=== PATIENT | female | born 1990 | race Caucasian/White ===

== ENCOUNTER 2016-03-17 19:02 | Emergency (ER) | payer SELFPAY ==
[2016-03-17 19:15] VITALS: RESP 16
[2016-03-17] MEDS ORDERED: SODIUM CHLORIDE 0.9% 1000ML 1,000 ML IV ONE (19:51)
[2016-03-17] MEDS ORDERED: ONDANSETRON HCL 4 MG TAB PO ONE (19:52)
[2016-03-17] MEDS ORDERED: ONDANSETRON HCL 4 MG TAB ONE (19:54)
[2016-03-17 20:04] LABS: BASOPHILS % (AUTO) 1 % (0-3); EOSINOPHILS % (AUTO) 2 % (0-9); HEMATOCRIT 42 % (35-47); MONOCYTES % (AUTO) 6.9 % (0-12); NEUTROPHILS % (AUTO) 54.2 % (37-80)
[2016-03-17 20:13] LABS: CALCIUM 8.9 mg/dl (8.5-10.1); POTASSIUM 4.1 mMol/L (3.5-5.1)
[2016-03-17 20:30] VITALS: BP 108/71; PULSE 80; TEMP 98.4; O2SAT 100
== END 2016-03-17 21:18 | disposition home or self-care (01) | DRG 312 ==
LOC: ED 19:02
DX: I95.1 Orthostatic hypotension (principal); Z33.1 Pregnant state, incidental
CPT/HCPCS: 80048; 84703; 85025; 99284

== ENCOUNTER 2016-09-10 23:46 | Emergency (ER) | payer SELFPAY ==
[2016-09-11 00:10] VITALS: TEMP 98.1
[2016-09-11 01:03] LABS: BASOPHILS % (AUTO) 0 % (0-3); EOSINOPHILS % (AUTO) 1 % (0-9); HEMATOCRIT 36 % (35-47); MEAN CORPUSCULAR HGB CONC 35.1 gm/dl (32.0-36.0); MEAN CORPUSCULAR VOLUME 85 fL (81-99); MONOCYTES % (AUTO) 7.7 % (0-12); NEUTROPHILS % (AUTO) 69.4 % (37-80)
[2016-09-11 01:11] LABS: CALCIUM 8.2 mg/dl (8.5-10.1); POTASSIUM 3.6 mMol/L (3.5-5.1)
[2016-09-11 01:13] LABS: APPEARANCE,URINE Slightly Cloudy; BILIRUBIN,URINE NEGATIVE (NEGATIVE); COLOR,URINE Yellow; GLUCOSE, URINE (UA) NEGATIVE (NEGATIVE); KETONES,URINE 2+ (NEGATIVE); LEUKOCYTE ESTERASE ,URINE NEGATIVE (NEGATIVE); NITRATE,URINE NEGATIVE (NEGATIVE); OCCULT BLOOD,URINE NEGATIVE (NEG-TRACE); PH,URINE 5.5; UROBILINOGEN,URINE 0.2 (0.2-1.0 EU)
[2016-09-11 01:21] VITALS: RESP 20; O2SAT 99
[2016-09-11 01:22] LABS: RBC,URINE NEG (0-3AV/HPF); WBC,URINE 0-1 (0-5AV/HPF)
[2016-09-11 01:25] VITALS: PULSE 82
[2016-09-11 01:38] VITALS: BP 115/64
== END 2016-09-11 02:55 | disposition home or self-care (01) | DRG 780 ==
LOC: ED 23:46
DX: O47.1 False labor at or after 37 completed weeks of gestation (principal); Z3A.35 35 weeks gestation of pregnancy
CPT/HCPCS: 36415; 59025; 80048; 81001; 85025; 99284; 99285

== ENCOUNTER 2016-10-07 07:02 | Inpatient (IN) | payer MEDICAID, OTHER ==
[2016-10-07] MEDS: SODIUM CHLORIDE 0.9% FLUSH 10 ML SOL IV SCH ×2 (07:40→16:50)
[2016-10-07] MEDS ORDERED: OXYTOCIN 10000 MU/ML SOL IM PRN (08:08)
[2016-10-07] MEDS ORDERED: METHYLERGONOVINE MALEATE 0.2 MG/ML SOL IM PRN (08:08)
[2016-10-07] MEDS ORDERED: MEPIVACAINE HCL 1% MPF 30 ML SOL INFIL PRN (08:08)
[2016-10-07] MEDS ORDERED: SODIUM CHLORIDE 0.9% FLUSH 10 ML SOL IV PRN (08:08)
[2016-10-07] MEDS ORDERED: CARBOPROST 250 MCG/ML SOL IM PRN (08:08)
[2016-10-07] MEDS ORDERED: FENTANYL 100MCG/2ML SOL IV PRN (08:08)
[2016-10-07 09:22] LABS: BASOPHILS % (AUTO) 1 % (0-3); EOSINOPHILS % (AUTO) 1 % (0-9); HEMATOCRIT 38 % (35-47); MEAN CORPUSCULAR HGB CONC 33.2 gm/dl (32.0-36.0); MEAN CORPUSCULAR VOLUME 90 fL (81-99); MONOCYTES % (AUTO) 7.4 % (0-12); NEUTROPHILS % (AUTO) 49.8 % (37-80)
[2016-10-07] MEDS: LACTATED RINGERS 1,000 ML IV PRN ×2 (11:50→16:51)
[2016-10-07] MEDS ORDERED: LACTATED RINGERS 1,000 ML IV SCH (17:45)
[2016-10-07] MEDS ORDERED: FLEET ENEMA PR PRN (20:11)
[2016-10-07] MEDS ORDERED: BENZOCAINE/MENTHOL 1 SPR TOP PRN (20:11)
[2016-10-07] MEDS ORDERED: METHYLERGONOVINE MALEATE 0.2 MG TAB PO PRN (20:11)
[2016-10-07] MEDS ORDERED: TEMAZEPAM 15MG 15 MG CAP PO PRN (20:11)
[2016-10-07] MEDS ORDERED: WITCH HAZEL 1 EA PAD TOP PRN (20:11)
[2016-10-07] MEDS ORDERED: BISACODYL 10 MG SUP PR PRN (20:11)
[2016-10-07] MEDS ORDERED: APAP/HYDROCODONE 325/5 TAB PO PRN (20:11)
[2016-10-07] MEDS: DOCUSATE SODIUM 100 MG SGL PO SCH (21:10)
[2016-10-07] MEDS: IBUPROFEN 600 MG TAB PO PRN (21:10)
[2016-10-08] MEDS: SODIUM CHLORIDE 0.9% FLUSH 10 ML SOL IV SCH ×3 (00:01→17:22)
[2016-10-08] MEDS: IBUPROFEN 600 MG TAB PO PRN (06:07)
[2016-10-08] MEDS: DOCUSATE SODIUM 100 MG SGL PO SCH ×2 (07:59→20:22)
[2016-10-08] MEDS ORDERED: TEMAZEPAM 15MG 15 MG CAP ONE (23:28)
[2016-10-09] MEDS: SODIUM CHLORIDE 0.9% FLUSH 10 ML SOL IV SCH ×2 (00:29→09:14)
[2016-10-09] MEDS: DOCUSATE SODIUM 100 MG SGL PO SCH (09:18)
[2016-10-09 13:58] VITALS: BP 102/69; PULSE 102; RESP 18; TEMP 97.2; O2SAT 97
== END 2016-10-09 18:45 | disposition home or self-care (01) | DRG 775 ==
LOC: OB 07:02 → PREOBSVTOIN 11-02 07:00
PROVIDERS: ADMIT Family Medicine; ATTEND Family Medicine
PROC: 10E0XZZ Delivery of Products of Conception, External Approach (ICD-10-PCS; principal; 2016-10-07)
PROC: 10907ZC Drainage of Amniotic Fluid, Therapeutic from Products of Conception, Via Natural or Artificial Opening (ICD-10-PCS; 2016-10-07)
DX: O80 Encounter for full-term uncomplicated delivery (principal); Z37.0 Single live birth; Z3A.39 39 weeks gestation of pregnancy
CPT/HCPCS: 36415; 59025; 85018; 85025; J0670; J2590

== ENCOUNTER 2017-06-18 14:19 | Emergency (ER) | payer MEDICAID, OTHER ==
[2017-06-18 14:37] VITALS: RESP 16; TEMP 97.8
[2017-06-18 15:29] VITALS: BP 92/69; PULSE 88; O2SAT 100
== END 2017-06-18 15:23 | disposition home or self-care (01) ==
LOC: ED 14:19
DX: S90.112A Contusion of left great toe without damage to nail, initial encounter (principal); W22.8XXA Striking against or struck by other objects, initial encounter
CPT/HCPCS: 73660; 99282; 99283